=== PATIENT | female | born 1960 | race Caucasian/White ===

== ENCOUNTER 2019-11-06 05:34 | Outpatient (RCR) | payer BC ==
[~2019-11-06] VITALS: Ht 167.7 cm; Wt 73.9 kg
[2019-11-06 09:18] VITALS: BP 151/92
[2019-11-06 09:45] LABS: BASOPHILS % (AUTO) 0 % (0-10); EOSINOPHILS # (AUTO) 0.1 10^3/uL (0.0-0.3); EOSINOPHILS % (AUTO) 2 % (0-10); HEMATOCRIT 41 % (35-52); HEMOGLOBIN 13.8 G/DL (11.5-16.0); LYMPHOCYTES # (AUTO) 2.9 X 10^3 (1.0-4.0); LYMPHOCYTES % (AUTO) 35 % (12-44); MEAN CORPUSCULAR HEMOGLOBIN 31 PG (25-34); MEAN CORPUSCULAR HGB CONC 34 G/DL (32-36); MEAN CORPUSCULAR VOLUME 93 FL (80-99); MEAN PLATELET VOLUME 9.1 FL (7.4-10.4); MONOCYTES # (AUTO) 0.5 X 10^3 (0.0-1.0); MONOCYTES % (AUTO) 6 % (0-12); NEUTROPHILS # (AUTO) 4.7 X 10^3 (1.8-7.8); NEUTROPHILS % (AUTO) 57 % (42-75); PLATELET COUNT 216 10^3/uL (130-400); RED CELL DISTRIBUTION WIDTH 13.4 % (10.0-14.5); WHITE BLOOD COUNT 8.2 10^3/uL (4.3-11.0)
[2019-11-06 10:03] LABS: CALCIUM 9.5 MG/DL (8.5-10.1); CREATININE SERUM 1.2 MG/DL (0.60-1.30); POTASSIUM 4.2 MMOL/L (3.6-5.0)
[2019-11-06] MEDS ORDERED: POTA10TA36 PO (12:33)
[2019-11-06] MEDS ORDERED: FURO-124 PO (12:33)
[2019-11-06] MEDS ORDERED: BUPR-42 PO (12:33)
[2019-11-06] MEDS ORDERED: ALPR0.5T PO (12:33)
== END 2019-11-06 12:34 | disposition home or self-care (01) ==
LOC: PREOP 05:34 → EDBD 05:34 → PREOP 12:34
PROVIDERS: ATTEND Otolaryngology Otolaryngology/Facial Plastic Surgery
DX: Z01.810 Encounter for preprocedural cardiovascular examination (principal); Z01.812 Encounter for preprocedural laboratory examination; J38.3 Other diseases of vocal cords; Z11.2 Encounter for screening for other bacterial diseases; Z20.828 Contact with and (suspected) exposure to other viral communicable diseases
CPT/HCPCS: 80048; 85025; 87081; 93005; U0002; 36415; 87635

== ENCOUNTER 2019-11-09 06:59 | Day surgery (SDC) | payer BC ==
[~2019-11-09] VITALS: Ht 167.7 cm; Wt 73.9 kg
[2019-11-09] VITALS (10 sets, daily range): BP systolic 110–134; BP diastolic 81–88
[~2019-11-09 06:59] MED LIST: ALPR0.5T PO; BUPR-42 PO; FURO-124 PO; POTA10TA36 PO
[2019-11-09] MEDS ORDERED: LACTATED RINGERS 1,000 ML IV PRN (07:07)
--- NOTE | 2019-11-09 07:50 | Progress Note-Pre Operative ---
Pre-Operative Progress Note H&P Reviewed The H&P was reviewed, patient examined and no changes noted. Date Seen by Provider: Nov 09, 2019 Time Seen by Provider: 07:30 Date H&P Reviewed: Nov 09, 2019 Time H&P Reviewed: :30 Pre-Operative Diagnosis: Bilat Vocal Cord Lesions/Hoarseness BENITA ROBLES MD Nov 09, 2019 07:50
[2019-11-09] MEDS ORDERED: LIDOCAINE/EPI 1%-1:100,000 (XYLOCAINE) 20ML ONE (07:53)
[2019-11-09] MEDS ORDERED: proPOfol 200 MG/20 ML (DIPRIVAN) VIAL IV ONE (08:00)
[2019-11-09] MEDS ORDERED: LIDOCAINE PF 2% 5 ML (XYLOCAINE) VIAL ONE (08:00)
[2019-11-09] MEDS ORDERED: fentaNYL INJECTION 100 MCG/2 ML AMP ONE (08:02)
[2019-11-09] MEDS ORDERED: MIDAZOLAM 2 MG/2 ML (VERSED) VIAL ONE (08:03)
--- NOTE | 2019-11-09 08:32 | Progress Note-Post Operative ---
Post-Operative Progess Note Surgeon (s)/Building Code Administrator (s) Surgeon BENITA ROBLES MD Building Code Administrator n/a Pre-Operative Diagnosis Bilat Vocal Cord Lesions/Hoarseness Post-Operative Diagnosis same Post-Op Procedure Note Date of Procedure: Nov 09, 2019 Name of Procedure Performed: Direct Laryngoscopy with Removal of Bilateral Vocal Cord Lesions Description & Findings Description and Findings: n/a Anesthesia Type get Estimated Blood Loss minimal Packing none. Specimen(s) collected/removed bilateral vocal cord lesions BENITA ROBLES MD Nov 09, 2019 08:32
[2019-11-09] MEDS ORDERED: ACETAMINOPHEN 325 MG TABLET PO PRN (08:45)
[2019-11-09] MEDS ORDERED: PROMETHAZINE INJ 25 MG/ML (PHENERGAN) AMP IV PRN (08:45)
[2019-11-09] MEDS ORDERED: HYDROcodone/APAP 5 MG/325 MG (LORTAB) TAB PO PRN (08:45)
[2019-11-09] MEDS ORDERED: GLYCOPYRROLATE 0.2 MG/ML (ROBINUL) 2 ML VIAL ONE (09:02)
[2019-11-09] MEDS ORDERED: NEOSTIGMINE 3 MG/3 ML VIAL ONE (09:02)
[2019-11-09] MEDS ORDERED: SEVOFLURANE (ULTANE) 15 ML INHAL SOLN ONE (09:02)
[2019-11-09] MEDS ORDERED: ROCURONIUM 10 MG/ML 5 ML SYRINGE IV ONE (09:03)
[2019-11-09] MEDS ORDERED: ONDANSETRON 4 MG/2 ML (SDV) Z0FRAN ONE (09:04)
[2019-11-09] MEDS ORDERED: PROMETHAZINE INJ 25 MG/ML (PHENERGAN) AMP IVP ONE (09:30)
[2019-11-09] MEDS ORDERED: morphine INJ 10 MG/ML 1ML (SYR OR VIAL) IVP ONE (09:30)
[2019-11-09] MEDS ORDERED: ONDANSETRON 4 MG/2 ML (SDV) Z0FRAN IVP PRN (09:30)
[2019-11-09] MEDS ORDERED: MEPERIDINE (DEMEROL) INJ 50 MG/ML IVP ONE (09:30)
--- NOTE | 2019-11-09 10:04 | Anesthesia-General Post-Op ---
General Patient Condition Mental Status/LOC: Same as Preop Cardiovascular: Satisfactory Nausea/Vomiting: Absent Respiratory: Satisfactory Pain: Controlled Complications: Absent Post Op Complications Complications None Follow Up Care/Instructions Patient Instructions None needed. Anesthesia/Patient Condition Patient Condition Patient is doing well, no complaints, stable vital signs, no apparent adverse anesthesia problems. No complications reported per nursing. HEIDI ARGUETA CRNA Nov 09, 2019 10:04
[2019-11-09] MEDS ORDERED: HYDR-3812 PO (10:15)
== END 2019-11-09 11:05 | disposition home or self-care (01) ==
LOC: EDBD → SDC 06:59
PROVIDERS: ATTEND Otolaryngology Otolaryngology/Facial Plastic Surgery
DX: J38.3 Other diseases of vocal cords (principal); F32.9 Major depressive disorder, single episode, unspecified; Z79.890 Hormone replacement therapy; Z79.899 Other long term (current) drug therapy